=== PATIENT | male | born 1965 | race Caucasian/White ===

== ENCOUNTER → 2020-03-03 | Outpatient (CLI) | payer BC ==
[~2020-03-03] MED LIST: BACTRIM DS 8001 TAB PO; CLINDAMYCIN150 MG PO; DOXYCYCLINE50 M2 PO; FLEXERIL10 MG PO; HYDROCODONE; PERCOCET 325 MG1 TA5 PO; PRILOSEC20 MG PO
== END ==
LOC: COVID19 13:44
PROVIDERS: ATTEND Family Medicine
DX: R50.9 Fever, unspecified (principal); Z20.828 Contact with and (suspected) exposure to other viral communicable diseases

== ENCOUNTER → 2021-08-26 | Outpatient (CLI) | payer OTHER ==
[2021-08-26 10:36] LABS: BASO % 0.6 % (0.0-1.0); EOS # 0.2 10*3/uL (0.0-0.4); EOS % 2.8 % (1.0-4.0); HEMATOCRIT 41.5 % (42.0-52.0); LYMPH # 2.4 10*3/uL (1.3-4.4); LYMPH % 34.4 % (27.0-41.0); MEAN CELL VOLUME 85.6 fl (80.0-94.0); MEAN CORPUSCULAR HGB 30.1 pg (27.0-31.0); MEAN CORPUSCULAR HGB CONC 35.2 g/dl (33.0-37.0); MEAN PLATELET VOLUME 9.6 fl (9.6-12.3); MONO # 0.6 10*3/uL (0.1-1.0); MONO % 8.5 % (3.0-9.0); NEUT # 3.7 10*3/uL (2.3-7.9); NEUT % 53.4 % (47.0-73.0); PLATELET COUNT AUTOMATED 261 10*3/uL (130-400); RED BLOOD COUNT 4.85 10*6/uL (4.50-5.90); RED CELL DISTRI WIDTH 12.9 % (0-14.5); RETICULOCYTE % 2.16 % (0.50-2.50); WHITE BLOOD COUNT 6.8 10*3/uL (4.8-10.8)
[2021-08-26 10:54] LABS: BUN 15 mg/dl (7-24); CHLORIDE 107 mmol/L (98-107); CHOLESTEROL 251 mg/dL (<200); GAMMA GLUTAMYL TRANSPEPTIDASE 72 U/L (15-85); POTASSIUM 4.7 mmol/L (3.5-5.1); SODIUM 139 mmol/L (136-145); TRIGLYCERIDES 179 mg/dl (<150)
[2021-08-26 11:03] LABS: ALKALINE PHOSPHATASE 73 U/L (45-117); CREATININE 0.86 mg/dL (0.70-1.30); IRON 89 ug/dL (65-175); LDL CHOLESTEROL 178 mg/dL (9-159); SGOT/AST 21 IU/L (3-35); SGPT/ALT 53 U/L (12-78); TOTAL IRON BINDING CAPACITY 372 ug/dl (250-450); TOTAL PROTEIN 7.8 gm/dL (6.4-8.2)
[2021-08-26 11:32] LABS: FERRITIN 86.2 ng/mL (22.0-322.0); VITAMIN D, 25-HYDROXY 22.8 ng/mL (30-100)
[2021-08-26 15:04] LABS: BILIRUBIN Negative (Negative); BLOOD Negative (Negative); CLARITY Clear (Clear); COLOR Yellow (Yellow); GLUCOSE Negative (Negative); KETONE Negative (Negative); LEUKO ESTERASE Negative (Negative); NITRITE Negative (Negative); PH 5.5 (4.5-8.0); UROBILINOGEN 0.2 E.U./dl (0.0-1.0)
[2021-08-26 15:26] LABS: BACTERIA TRACE; EPITHELIAL CELLS 0-2; MUCOUS 3+; WBC 0-2 wbc/hpf (0-5)
== END | disposition home or self-care (01) ==
LOC: LAB 10:10
PROVIDERS: ATTEND Family Medicine
DX: R53.83 Other fatigue (principal); R79.89 Other specified abnormal findings of blood chemistry; E78.5 Hyperlipidemia, unspecified; E55.9 Vitamin D deficiency, unspecified

== ENCOUNTER → 2022-01-24 | Day surgery (SDC) | payer BC ==
[2022-01-20 14:38] VITALS: BP 139/68
[~2022-01-24] VITALS: Ht 177.8 cm; Wt 88.5 kg
[~2022-01-24] MED LIST changes: +AMLODIPINE BESY10 MG PO; +CEFDINIR300 MG PO; +FISH OIL 1,0001 EAC8 PO; +HYDROCODONE BIT10 MG PO; +LISINOPRIL20 MG PO; +PRILOSEC20 M1 PO; +VITAMIN C500 M7 PO; +VITAMIN D310 MC3 PO
[2022-01-24 07:00] VITALS: BP 125/72
[2022-01-24 08:28] VITALS: BP 144/67
[2022-01-24 08:43] VITALS: BP 128/64
[2022-01-24 08:58] VITALS: BP 129/64
[2022-01-24 09:13] VITALS: BP 122/64
[2022-01-24 09:28] VITALS: BP 129/68
== END | disposition home or self-care (01) ==
LOC: SDC 01-20 13:15
PROVIDERS: ATTEND Specialist
DX: J38.1 Polyp of vocal cord and larynx (principal); H60.8X3 Other otitis externa, bilateral; R49.0 Dysphonia; I10 Essential (primary) hypertension; K21.9 Gastro-esophageal reflux disease without esophagitis; E78.00 Pure hypercholesterolemia, unspecified; J45.909 Unspecified asthma, uncomplicated; Z98.890 Other specified postprocedural states; Z79.899 Other long term (current) drug therapy